=== PATIENT | female | born 1955 | race Caucasian/White ===

== ENCOUNTER → 2024-03-19 13:09 | Outpatient (REF) | payer MEDICARE, BC, SELFPAY ==
[2024-03-19 15:55] LABS: Urine Albumin Negative (Neg - Trace); Urine Bilirubin Negative (Negative); Urine Character Clear (Clear); Urine Color Yellow; Urine Glucose Negative (Negative); Urine Ketone Negative (Negative); Urine Leukocyte Trace (Negative); Urine Nitrite Negative (Negative); Urine Occult Blood Negative (Negative); Urine Urobilinogen Negative (Neg - 1+)
[2024-03-19 16:22] LABS: Urine Squamous Cell 0-2 /LPF (Few)
== END ==
LOC: HWLAB 13:09
PROVIDERS: ATTENDING PHYSICIAN Nurse Practitioner Adult Health
DX: R82.2 Biliuria (principal)
CPT/HCPCS: 81003; 81015

== ENCOUNTER → 2024-05-12 10:21 | Outpatient (REF) | payer MEDICARE, BC, SELFPAY ==
[2024-05-12 12:50] LABS: ALT (SGPT) 25 U/L (0-35); AST (SGOT) 30 U/L (14-36); Albumin 4.7 g/dl (3.5-5.0); Alkaline Phosphatase 66 U/L (38-126); Blood Urea Nitrogen 22 mg/dl (7-17); Calcium 10.3 mg/dl (8.4-10.2); Carbon Dioxide 26 mmol/L (22-30); Chloride 102 mmol/L (98-107); Creatine Phosphokinase 59 U/L (30-135); Glucose 107 mg/dl (70-99); Potassium 3.9 mmol/L (3.5-5.1); Sodium 141 mmol/L (135-145); Total Protein 7.7 g/dl (6.3-8.2); eGFR > 60.00
== END ==
LOC: HWLAB 10:21
PROVIDERS: ATTENDING PHYSICIAN Internal Medicine Cardiovascular Disease; FAMILY PHYSICIAN Nurse Practitioner Adult Health
DX: R00.1 Bradycardia, unspecified (principal); I25.10 Atherosclerotic heart disease of native coronary artery without angina pectoris; E78.5 Hyperlipidemia, unspecified; I10 Essential (primary) hypertension
CPT/HCPCS: 36415; 80053; 82550

== ENCOUNTER → 2024-05-27 08:11 | Outpatient (REF) | payer MEDICARE, BC, SELFPAY | LOC: HWRCS 08:11 | PROVIDERS: ATTENDING PHYSICIAN Internal Medicine Cardiovascular Disease; FAMILY PHYSICIAN Nurse Practitioner Adult Health | DX: R00.1 Bradycardia, unspecified (principal); I25.10 Atherosclerotic heart disease of native coronary artery without angina pectoris; E78.00 Pure hypercholesterolemia, unspecified; I10 Essential (primary) hypertension | CPT/HCPCS: 93306 ==

== ENCOUNTER → 2024-06-15 11:44 | Outpatient (REF) | payer MEDICARE, BC, SELFPAY | LOC: HWWDC 11:44 | PROVIDERS: ATTENDING PHYSICIAN Obstetrics & Gynecology; FAMILY PHYSICIAN Nurse Practitioner Adult Health | DX: Z12.31 Encounter for screening mammogram for malignant neoplasm of breast (principal) | CPT/HCPCS: 77063; 77067 ==

== ENCOUNTER → 2024-06-23 08:25 | Outpatient (REF) | payer MEDICARE, BC, SELFPAY | LOC: WDC 08:25 | PROVIDERS: ATTENDING PHYSICIAN Obstetrics & Gynecology; FAMILY PHYSICIAN Nurse Practitioner Adult Health | DX: R92.8 Other abnormal and inconclusive findings on diagnostic imaging of breast (principal) | CPT/HCPCS: 77065 ==

== ENCOUNTER → 2024-07-02 07:26 | Outpatient (REF) | payer MEDICARE, BC, SELFPAY | LOC: WDC 07:26 | PROVIDERS: ATTENDING PHYSICIAN Obstetrics & Gynecology; FAMILY PHYSICIAN Nurse Practitioner Adult Health | DX: R92.1 Mammographic calcification found on diagnostic imaging of breast (principal) | CPT/HCPCS: 88305; 19081; 76098; 88360; A4648 ==

== ENCOUNTER → 2024-07-02 08:59 | Outpatient (REF) | payer MEDICARE, BC, SELFPAY | LOC: RAD 08:59 | PROVIDERS: ATTENDING PHYSICIAN Internal Medicine Cardiovascular Disease; FAMILY PHYSICIAN Nurse Practitioner Adult Health | DX: Z95.1 Presence of aortocoronary bypass graft (principal); M79.604 Pain in right leg; M79.605 Pain in left leg | CPT/HCPCS: 93922; 93925 ==

== ENCOUNTER → 2024-07-20 09:31 | Outpatient (REF) | payer MEDICARE, BC, SELFPAY | LOC: WDC 09:31 | PROVIDERS: ATTENDING PHYSICIAN Surgery; FAMILY PHYSICIAN Nurse Practitioner Adult Health | DX: R92.1 Mammographic calcification found on diagnostic imaging of breast (principal) | CPT/HCPCS: 77065 ==

== ENCOUNTER → 2024-07-24 06:51 | Outpatient (REF) | payer MEDICARE, BC, SELFPAY | LOC: WDC 06:51 | PROVIDERS: ATTENDING PHYSICIAN Surgery | DX: R92.1 Mammographic calcification found on diagnostic imaging of breast (principal) | CPT/HCPCS: 88305; 19081; 76098; A4648 ==

== ENCOUNTER → 2024-08-03 11:26 | Outpatient (REF) | payer MEDICARE, BC, SELFPAY | LOC: WDC 11:26 | PROVIDERS: ATTENDING PHYSICIAN Surgery | DX: D05.11 Intraductal carcinoma in situ of right breast (principal) | CPT/HCPCS: 19281; A4648 ==

== ENCOUNTER 2024-08-04 06:20 | Day surgery (SDC) | payer MEDICARE, BC, SELFPAY ==
[2024-07-30 14:22] VITALS: BMI 26.5
[2024-08-04] VITALS (7 sets, daily range): BP systolic 94–154; BP diastolic 44–71; BMI 26.5
[2024-08-04] MEDS: LOVENOX 40 MG SC (08:30)
[2024-08-04] MEDS: NORMOSOL-R/PLASMALYTE-A 1000 IV (08:30)
[2024-08-04] MEDS: TYLENOL 1000 MG PO (08:31)
--- NOTE | 2024-08-04 10:32 | W.IMMPOSTOP ---
Surgical Immed Post Op Note
-
Primary Surgeon: Annabel
Assisting Surgeon: None
Pre-op Diagnosis: Right breast DCIS
Post-op Diagnosis: Same
Procedure Performed: Right localized lumpectomy and oncoplastic mastoplasty
Anesthesia Type: TIVA
Specimen / Cultures: Lumpectomy, margins
Estimated Blood Loss: 6cc
Complications: None
Operative Findings: Vianey reflectors dislodged
--- NOTE | 2024-08-04 10:33 | OR.RPT ---
Operative Report
Operative Report
Pre-op DX: Right breast DCIS
Post-op DX: Right breast DCIS
Procedure: Right localized lumpectomy, oncoplastic mastoplasty
The patient is a 68-year-old female with biopsy-proven ductal carcinoma in situ of the right breast. She presents for right localized lumpectomy and possible oncoplastic closure.
On the day prior to the procedure the patient presented to the breast center and 2 Vianey client consultant reflectors were placed. On the day of the procedure, she presented to the same-day surgical unit and was prepped. DVT and antibiotic prophylaxis were
provided and the patient was transferred to the operating room.
In the supine position intravenous sedation was delivered. The right breast was prepped and draped in the usual sterile fashion. An appropriate timeout was performed with all staff. Tissues were anesthetized with 1% lidocaine plain. The signal
of the 2 reflectors had been sounded out and a curvilinear incision was made equidistant between the highest signals. Skin flaps were elevated in the oncoplastic plane and a wide lumpectomy was performed using the cautery. 1 reflector was palpated
and dislodged and the second one was dislodged during the dissection and found on the drapes and sent under separate cover. Time out of body for the lumpectomy was noted and the specimen is oriented for the pathologist. Specimen radiography
confirmed the presence of all of the targeted calcifications within it. Additional margins were harvested for permanent analysis from the posterior, medial, superior, lateral, inferior, and anterior dimensions. These were oriented as well. This
left a resulting defect of 5 x 4 cm therefore in an oncoplastic fashion, separate tissue advancement flap was made using the cautery. Hemostasis was carefully maintained and Marcaine 0.5% plain was instilled into all tissues. A piece of Surgicel
was placed in the posterior dimension of the wound. Wound was closed using simple and erupted 3-0 plain on deep intermediate and subcutaneous tissue and skin was closed using simple interrupted 3-0 Vicryl on subcutaneous tissue and running
subcuticular 4 Monocryl with a few simple interrupted Monocryl's.
Surgical glue and sterile compressive dressings were applied. All sponge needle and instrument counts were correct the patient was transferred to the recovery recovery room in stable condition.
([id number])
== END 2024-08-04 11:35 | disposition home or self-care (01) ==
LOC: SDS 06:20
PROVIDERS: ATTENDING PHYSICIAN Surgery
DX: C50.911 Malignant neoplasm of unspecified site of right female breast (principal); Z17.0 Estrogen receptor positive status [ER+]
CPT/HCPCS: 19301; 88302; 88305; 88307; 76098; 88341; 88360

== ENCOUNTER 2024-09-14 09:35 | Day surgery (SDC) | payer MEDICARE, BC, SELFPAY ==
[2024-09-14] VITALS (15 sets, daily range): BP systolic 79–146; BP diastolic 43–94; BMI 27.3
[2024-09-14 10:15] LABS: Hematocrit 38.5 % (37.0-47.0); Hemoglobin 13.5 g/dL (12.0-16.0); Mean Corp Hgb Conc. 35.1 g/dL (33.0-37.0); Mean Corpuscular Volume 88.5 fL (81.0-99.0); Mean Platelet Volume 10.2 fL (7.4-10.4); Platelet Count 210 10^3/uL (130-400); Red Blood Cell Count 4.35 10^6/uL (4.20-5.40)
[2024-09-14 10:29] LABS: Blood Urea Nitrogen 17 mg/dl (7-17); Calcium 9.9 mg/dl (8.4-10.2); Carbon Dioxide 27 mmol/L (22-30); Chloride 104 mmol/L (98-107); Estimated Creatinine Clearance 63 ml/min; Glucose 115 mg/dl (70-99); Potassium 3.7 mmol/L (3.5-5.1); Sodium 139 mmol/L (135-145); eGFR > 60.00
[2024-09-14 10:31] LABS: APTT 27.4 Sec (23.4-35.0); INR 0.96; PT 13.1 Sec (11.4-14.6)
--- NOTE | 2024-09-14 11:09 | W.SUR.PREOP ---
Pre-Operative Surgical Note
-
I have examined this patient prior to the performance of the scheduled procedure.
The patient's condition is unchanged from the time of the current History and
Physical and the patient is able to undergo the scheduled procedure.
[2024-09-14] MEDS: NSS 248 ML IV (12:03)
--- NOTE | 2024-09-14 13:47 | W.SUR.POST ---
Surgical Immediate Post Op
Note
Pre Op Diagnosis: PAD
Post Op Diagnosis: R popliteal stenosis. L popliteal stenosis.
Procedure Performed: Aortogram + bilateral lower extremity angiogram. IVUS of RLE. Shockwave R popliteal calified lesion. R popliteal stent and MACHINE HEEL SEAT FITTER. Proglide L groin.
Primary Surgeon: Tab Olsen
Secondary Surgeons: Julio C Nugent
Anesthesia: see anesthesia flowsheet
Estimated Blood Loss: 2cc
Fluids: see anesthesia flowsheet
Drains/Shunts: none
Specimens/Cultures: none
Doppler/Duplex/Angio (Y/N): Y
Complications: none
Operative Findings: L groin access. Aortogram without significant inflow disease. Crossed to R and performed RLE angiogram which was notable for popliteal stenosis with three vessel runoff. IVUS of RLE. Shockwave to calcified R popliteal stenosis
with good effect. Placement of R popliteal stent followed by MACHINE HEEL SEAT FITTER. Completion angio with good result. Then perfomed LLE angio which was notable for L popliteal occlusive lesion with large collateral but no other major obvious disease. Proglidge L
groin for closure. Patient to remain flat x 1 hour, then 30 degrees x 3 additional hours.
[2024-09-14] MEDS: PLAVIX 300 MG PO (14:19)
--- NOTE | 2024-09-14 14:21 | OR.RPT ---
Operative Report
Operative Report
Date of Operation: 09/14/2024
Pre Op Diagnosis: Debilitating bilateral lower extremity claudication
Post Op Diagnosis: Debilitating bilateral lower extremity claudication
Procedure:
1.) Intravascular ultrasound to right popliteal artery calcified stenosis (6 mm x 80 mm E8 shockwave balloon)
2.) Balloon angioplasty and stenting of right popliteal artery stenosis (6 mm x 40 mm Zilver PTX)
3.) Intravascular ultrasound of external iliac artery, common femoral artery, superficial femoral artery, popliteal artery, tibioperoneal trunk and proximal peroneal artery
4.) Diagnostic aortobiiliac arteriogram
5.) Diagnostic BILATERAL lower extremity arteriogram
6.) Ultrasound-guided percutaneous access to the left common femoral artery
7.) Pro-glide closure to left common femoral artery access
Surgeon: Tab Olsen III, MD
Complaint Evaluation Supervisor: Julio C Nugent MD, PGY4
Anesthesia: Sedation with local
Fluoroscopy:
23 min
128 mGy
42.77 Gy.cm2
Complications: None
Estimated Blood Loss: 20 cc
History and Indications for Procedure: 68-year-old female with debilitating bilateral lower extremity claudication. Abnormal preoperative noninvasive lower extremity arterial studies
Procedure in Detail: Renee Mcgee was correctly identified and placed supine on the operating table. After adequate induction of anesthesia the bilateral groins were prepped and draped in the usual sterile fashion. A timeout was performed with the
nursing and anesthesia staff confirming the patient's identity as well as the nature and laterality of the procedure.
The left common femoral artery was identified under ultrasound guidance. The artery was patent. The superior and inferior aspects of the femoral head were identified with radiographic guidance and marked at the skin level. The proposed puncture site
was infiltrated with local anesthesia. Under ultrasound guidance we accessed the left common femoral artery with a micropuncture needle and upsized to a 5 Fr sheath over a #waywireson wire. The wire and a NaturalPath MediapherMathZee hook flush catheter were advanced into
the distal abdominal aorta and a diagnostic aorto-biiliac arteriogram was performed:
AORTO-ILIAC ARTERIOGRAM:
Aorta: Patent with no significant stenosis identified
Right common iliac artery: Patent with no significant stenosis identified
Right external iliac artery: Patent with no significant stenosis identified
Left common iliac artery: Patent with no significant stenosis identified
Left external iliac artery: Patent with no significant stenosis identified
Under roadmap guidance using a Glidewire and the SheMediaScrapeerMathZee hook catheter we selected the right common iliac artery and then the external iliac artery. A catheter was tracked up and over the aortic bifurcation and placed in the distal external iliac
artery. A diagnostic right lower extremity arteriogram was then performed which demonstrated the following:
RIGHT LOWER EXTREMITY:
Common femoral artery: Patent with no significant stenosis identified
Profunda femoral artery: Patent with no significant stenosis identified
Superficial femoral artery: Patent with no significant stenosis identified
Popliteal artery: Patent. Focal bulky calcified stenosis behind the knee leading to a high-grade stenosis
Anterior tibial artery: Patent
Tibioperoneal trunk: Patent
Peroneal artery: Patent
Posterior tibial artery: Patent
ENDOVASCULAR INTERVENTION: Systemic heparin was administered. Exchanged out for a 6 Fr 45 cm sheath over a Storq wire. Selected the superficial femoral artery followed by the popliteal artery under roadmap guidance with Quickcross catheter and
glidewire. The popliteal artery stenosis was crossed with a Quickcross and Glidewire. The wire and catheter were advanced into the TP trunk/peroneal artery and subtraction angio confirmed proper position in the true lumen. Exchanged out for a 0.014
wire.
A 0.014 IVUS catheter was then used for diagnostic imaging and demonstrated the following:
Right distal external iliac artery-7 mm x 7.5 mm
Right common femoral artery-7.2 mm x 7.7 mm
Right proximal SFA-5 mm x 6 mm
Right mid SFA-5.4 mm x 5.8 mm
Right distal SFA-4.6 mm x 5.2 mm
Right above-knee popliteal artery-5.2 mm x 6.2 mm
Popliteal artery behind the knee demonstrated a calcified plaque contributing to a significant stenosis correlating to the arteriogram and preoperative duplex findings
Right below the knee popliteal artery 4.4 mm x 4.8 mm
TP trunk/proximal peroneal artery 3.4 mm x 4 mm
Due to the heavily calcified nature of the popliteal artery disease and in an effort to modify the calcium to achieve maximum luminal gain with endovascular intervention I elected to proceed with intravascular lithotripsy. A 6 mm x 80 mm Shockwave
balloon was placed across the stenosis under roadmap guidance. Alternating rounds of lithotripsy pulse delivery at sub-nominal pressure and angioplasty at nominal pressure was performed across the stenosis. In between rounds of pulse delivery and
angioplasty the balloon was deflated and repositioned under roadmap guidance. All 400 pulses were delivered. Subsequent arteriogram demonstrated significant improvement in luminal gain but eccentric plaque remained contributing to a stenosis. I
then brought into position a 6 mm x 40 mm Zilver PTX stent and positioned this across the residual popliteal artery stenosis under roadmap guidance. The stent was deployed and the delivery system removed over the wire. A 5 mm angioplasty balloon was
used to profile the entire length of the stent.
COMPLETION ARTERIOGRAM: Excellent technical result. Brisk flow through a widely patent popliteal artery. Only minimal residual stenosis remained. Brisk three-vessel tibial artery runoff identified.
The sheath tip was pulled back into the left external iliac artery.
A runoff arteriogram of the left lower extremity was performed which demonstrated the following:
LEFT LOWER EXTREMITY:
Common femoral artery: Patent with no significant stenosis identified
Profunda femoral artery: Patent with no significant stenosis identified
Superficial femoral artery: Patent with no significant stenosis identified
Popliteal artery: Patent. Focal bulky calcified stenosis behind the knee leading to a focal occlusion. Distal reconstitution of the below the knee popliteal artery identified
Anterior tibial artery: Patent
Tibioperoneal trunk: Patent
Peroneal artery: Patent
Posterior tibial artery: Patent
Satisfied with this result we concluded the procedure. Protamine was administered. The left common femoral artery access was closed successfully with a single Pro-glide closure device. Sterile dressing was applied.
The patient tolerated the procedure well and was taken to the recovery area in stable condition.
Attestation: I was present and responsible for the entire procedure.
Signed:
Tab Olsen III, MD
[facility]
[phone] (cell)
[2024-09-14] MEDS: NSS 1000 IV (16:21)
== END 2024-09-14 17:33 | disposition home or self-care (01) ==
LOC: CATH 09:35
PROVIDERS: ATTENDING PHYSICIAN Surgery Vascular Surgery; OTHER PHYSICIAN Internal Medicine Cardiovascular Disease; PRIMARYCARE PHYSICIAN Nurse Practitioner Adult Health
DX: I70.213 Atherosclerosis of native arteries of extremities with intermittent claudication, bilateral legs (principal); I10 Essential (primary) hypertension; E78.00 Pure hypercholesterolemia, unspecified; I25.10 Atherosclerotic heart disease of native coronary artery without angina pectoris; Z95.1 Presence of aortocoronary bypass graft; Z79.82 Long term (current) use of aspirin; Z79.02 Long term (current) use of antithrombotics/antiplatelets
CPT/HCPCS: 37226; 37252; 37253; 75625; 75716; 80048; 85027; 85610; 85730; C1725; C1760; C1769; C1874; C1894; Q9967

== ENCOUNTER 2024-09-28 06:48 | Day surgery (SDC) | payer MEDICARE, BC, SELFPAY ==
[2024-09-28] VITALS (13 sets, daily range): BP systolic 100–145; BP diastolic 44–71
[2024-09-28 07:27] LABS: Hematocrit 35.6 % (37.0-47.0); Hemoglobin 12.9 g/dL (12.0-16.0); Mean Corp Hgb Conc. 36.2 g/dL (33.0-37.0); Mean Corpuscular Hgb 31.5 pg (27.0-31.0); Mean Corpuscular Volume 86.8 fL (81.0-99.0); Mean Platelet Volume 10.5 fL (7.4-10.4); Platelet Count 187 10^3/uL (130-400); Red Cell Dist. Width 12.5 % (11.5-14.5); White Blood Cell Count 7.2 10^3/uL (4.8-10.8)
--- NOTE | 2024-09-28 07:28 | HP.FOC2 ---
Focused History & Physical
Chief Complaint
HPI:
Chief Complaint: Left lower extremity claudication that is lifestyle limiting.
HPI / Indication for Planned Procedure:
This is a 68 year old female with significant past medical history for hypertension, CAD, BL carotid stenosis, and right breast DCI who presented to [facility] on 09/28/2024 for scheduled procedure of left lower extremity angiogram with
possible endovascular intervention with Dr. Tab Olsen III. Patient denies recent illness, trauma, or hospitalization. Denies fever, chills, nausea, vomiting, ABD pain, loose stools, and cough. She endorsees she is at baseline health. She recently
underwent intravascular ultrasound to right popliteal artery calcified stenosis (6 mm x 80 mm E8 shockwave balloon), balloon angioplasty and stenting of right popliteal artery stenosis (6 mm x 40 mm Zilver PTX), Intravascular ultrasound of external
iliac artery, common femoral artery, superficial femoral artery, popliteal artery, tibioperoneal trunk and proximal peroneal artery, diagnostic aortobiiliac arteriogram, and diagnostic BILATERAL lower extremity arteriogram with Dr. Tab Olsen III
on 09/14/2024. She reports resolution to her right lower extremity rest pain since surgery.
Relevant Past Medical History: Coronary Artery Disease, Hypertension and Other (BL carotid stenosis, right breast DCIS)
Relevant Family History: Positive for (colon cancer, sarcoma, CAD)
Relevant Past Surgical History: Positive for (CABG x4, right breast biopsy, right lumpectomy )
Review of Systems
Review of Pertinent Systems: All Systems Negative
Medication
See Medication form for detailed medications: Yes
Medication List (including Herbals & OTC):
acetaminophen 500 mg capsule 500 mg PO Q6H PRN left leg pain, ankle pain 07/31/24
aspirin 81 mg tablet,delayed release 81 mg PO DAILY 07/31/24
atorvastatin 80 mg tablet 80 mg PO DAILY 07/31/24
ezetimibe 10 mg tablet 10 mg PO DAILY 07/31/24
hydrochlorothiazide 12.5 mg tablet 12.5 mg PO DAILY 07/31/24
losartan 100 mg tablet 100 mg PO DAILY 07/31/24
multivitamin 1 tab PO DAILY 09/07/24
clopidogrel 75 mg tablet 75 mg PO DAILY #90 tabs 09/14/24
omega 2-qev-qbg-fish oil 1,000 mg (120 mg-180 mg) capsule (Fish Oil) 1 cap PO DAILY 09/23/24
Medications Reviewed: Yes
Allergies and Reactions
Patient has Allergies: No
Noted Allergies and Reactions:
Allergy/AdvReac Type Severity Reaction Status Date / Time
No Known Allergies Allergy Verified 09/28/24 07:26
Pertinent Physical Exam
All Other Systems: Negative
Head/Neck: Normal
Lungs: Normal (BL lungs CTA )
Heart: Normal (RRR, S1S2)
Abdomen: Normal (NTND)
Extremities: Other (BL radial pulse +2, RLE DP+1, LLE DP non-palpable)
Neurological: Normal
Diagnosis / Assessment
Diagnosis: 68 year old female with left lower extremity claudication lifestyle limiting
Plan / Procedure
Plan: Will proceed with as scheduled left lower extremity angiogram with possible endovascular intervention.
Anesthesia/Sedation to be done by Anesthesia Provider: Yes
[2024-09-28 07:38] LABS: Blood Urea Nitrogen 12 mg/dl (7-17); Calcium 9.4 mg/dl (8.4-10.2); Carbon Dioxide 25 mmol/L (22-30); Chloride 103 mmol/L (98-107); Estimated Creatinine Clearance 80 ml/min; Glucose 107 mg/dl (70-99); Potassium 3.3 mmol/L (3.5-5.1); Sodium 137 mmol/L (135-145); eGFR > 60.00
[2024-09-28] MEDS: NSS 252 IV (07:40)
[2024-09-28 07:45] LABS: INR 0.88; PT 12.2 Sec (11.4-14.6)
[2024-09-28 07:47] LABS: APTT 28.5 Sec (23.4-35.0)
--- NOTE | 2024-09-28 09:38 | W.SUR.POST ---
Surgical Immediate Post Op
Note
Pre Op Diagnosis: PAOD
Post Op Diagnosis: PAOD
Procedure Performed: LLE angio, lithotripsy, stent via R femoral access
Primary Surgeon: Tab Olsen
Secondary Surgeons: Julio C Nugent
Anesthesia: see anesthesia flowsheet
Estimated Blood Loss: 2cc
Fluids: see anesthesia flowsheet
Drains/Shunts: none
Specimens/Cultures: none
Doppler/Duplex/Angio (Y/N): y
Complications: none
Operative Findings: R groin access. Diagnostic aortbi-iliogram and LLE angiogram. Near-occlusive L popliteal lesion with prominent collateral. Lithotripsy with shockwave catheter of popliteal lesion with good effect but residual stenosis. Vega
stent of L pop. Three vessel runoff on completion, palpable DP.
--- NOTE | 2024-09-28 12:11 | OR.RPT ---
Operative Report
Operative Report
Date of Operation: 09/28/2024
Pre Op Diagnosis: Debilitating bilateral lower extremity claudication
Post Op Diagnosis: Debilitating bilateral lower extremity claudication
Procedure:
1.) Intravascular lithotripsy to left popliteal artery behind the knee (6 mm x 80 mm E8 shockwave balloon)
2.) Balloon angioplasty and drug-eluting stent placement to left popliteal artery behind the knee (6 mm x 40 mm Zilver PTX)
3.) Diagnostic left lower extremity arteriogram
4.) Diagnostic aortobiiliac arteriogram
5.) Ultrasound-guided percutaneous access to the right common femoral artery
Surgeon: Tab Olsen III, MD
Painting And Coating Worker: Julio C Nugent MD, PGY4
Anesthesia: Sedation with local
Fluoroscopy:
20.7 min
101 mGy
24.07 Gy.cm2
Complications: None
Estimated Blood Loss: Less than 20 cc
History and Indications for Procedure: 68-year-old female with peripheral arterial occlusive disease and disabling lower extremity claudication.
Procedure in Detail: Renee Mcgee was correctly identified and placed supine on the operating table. After adequate induction of anesthesia the bilateral groins were prepped and draped in the usual sterile fashion. A timeout was performed with the
nursing and anesthesia staff confirming the patient's identity as well as the nature and laterality of the procedure.
The right common femoral artery was identified under ultrasound guidance. The artery was patent. The superior and inferior aspects of the femoral head were identified with radiographic guidance and marked at the skin level. The proposed puncture
site was infiltrated with local anesthesia. Under ultrasound guidance we accessed the right common femoral artery with a micropuncture needle and upsized to a 5 Fr sheath over a Bentson wire. The wire and a ShepherNaphCare hook flush catheter were
advanced into the distal abdominal aorta and a diagnostic aorto-biiliac arteriogram was performed:
AORTO-ILIAC ARTERIOGRAM:
Aorta: Patent with no significant stenosis identified
Right common iliac artery: Patent with no significant stenosis identified
Right external iliac artery: Patent with no significant stenosis identified
Left common iliac artery: Patent with no significant stenosis identified
Left external iliac artery: Patent with no significant stenosis identified
Under roadmap guidance using a Glidewire and the ShepherNaphCare hook catheter we selected the left common iliac artery and then the external iliac artery. A catheter was tracked up and over the aortic bifurcation and placed in the distal external iliac
artery. A diagnostic left lower extremity arteriogram was then performed which demonstrated the following:
LEFT LOWER EXTREMITY:
Common femoral artery: Patent with no significant stenosis identified
Profunda femoral artery: Patent with no significant stenosis identified
Superficial femoral artery: Patent with no significant stenosis identified
Popliteal artery: Patent above the knee. Focal calcified high-grade stenosis versus focal occlusion behind the knee. Below the knee segment patent with no stenosis
Anterior tibial artery: Patent
Tibioperoneal trunk: Patent
Peroneal artery: Patent
Posterior tibial artery: Patent
ENDOVASCULAR INTERVENTION: Systemic heparin was administered. Exchanged out for a 6 Fr 45 cm sheath over a Storq wire. Selected the superficial femoral artery under roadmap guidance with Quickcross catheter and glidewire. The popliteal disease was
crossed with a Quickcross and Glidewire. The wire and catheter were advanced into the below the knee popliteal artery and subtraction angio confirmed proper position in the true lumen. Exchanged out for a Muir ST 0.014 wire. Due to the heavily
calcified nature of the popliteal artery disease and in an effort to modify the calcium to achieve maximum luminal gain with endovascular intervention I elected to proceed with intravascular lithotripsy. A 6 mm x 80 mm Shockwave balloon was placed
across the stenosis under roadmap guidance. Alternating rounds of lithotripsy pulse delivery at sub-nominal pressure and angioplasty at nominal pressure was performed across the stenosis. In between rounds of pulse delivery and angioplasty the
balloon was deflated and repositioned under roadmap guidance. All 400 pulses were delivered. Subsequent arteriogram demonstrated a significantly improved result with a patent popliteal artery but residual stenosis behind the knee was identified. I
treated this area with a 6 mm x 40 mm Zilver PTX stent. This was positioned in the desired location under roadmap guidance and deployed. The stent was postdilated with a 6 mm balloon.
COMPLETION ARTERIOGRAM: Excellent technical result. Brisk flow through the popliteal artery with minimal residual stenosis identified. Widely patent stent. Intact brisk three-vessel tibial runoff.
Satisfied with this result we concluded the procedure. The sheath tip was pulled back into the right external iliac artery. Protamine was administered. The sheath was secured with the plan to pull it in the recovery area.
The patient tolerated the procedure well and was taken to the recovery area in stable condition.
Attestation: I was present and responsible for the entire procedure.
Signed:
Tab Olsen III, MD
[facility]
[phone] (tuiv)
[2024-09-28] MEDS: NSS 1000 IV (14:41)
== END 2024-09-28 15:20 | disposition home or self-care (01) ==
LOC: CATH 06:48
PROVIDERS: ATTENDING PHYSICIAN Surgery Vascular Surgery; OTHER PHYSICIAN Internal Medicine Cardiovascular Disease; PRIMARYCARE PHYSICIAN Nurse Practitioner Adult Health
DX: I70.212 Atherosclerosis of native arteries of extremities with intermittent claudication, left leg (principal); I10 Essential (primary) hypertension; I25.10 Atherosclerotic heart disease of native coronary artery without angina pectoris; Z85.72 Personal history of non-Hodgkin lymphomas; Z79.02 Long term (current) use of antithrombotics/antiplatelets; Z79.899 Other long term (current) drug therapy; Z79.82 Long term (current) use of aspirin
CPT/HCPCS: C9765; 75625; 75716; 80048; 85027; 85610; 85730; C1725; C1769; C1874; C1894; Q9967

== ENCOUNTER → 2024-09-30 09:02 | Outpatient (REF) | payer MEDICARE, BC, SELFPAY | LOC: RCS 09:02 | PROVIDERS: ATTENDING PHYSICIAN Internal Medicine Cardiovascular Disease; FAMILY PHYSICIAN Nurse Practitioner Adult Health | DX: R00.1 Bradycardia, unspecified (principal); R42 Dizziness and giddiness; I10 Essential (primary) hypertension; I25.10 Atherosclerotic heart disease of native coronary artery without angina pectoris | CPT/HCPCS: 93225; 93226 ==

== ENCOUNTER → 2024-10-21 08:22 | Outpatient (REF) | payer MEDICARE, BC, SELFPAY | LOC: RAD 08:22 | PROVIDERS: ATTENDING PHYSICIAN Surgery Vascular Surgery; FAMILY PHYSICIAN Nurse Practitioner Adult Health | DX: I73.9 Peripheral vascular disease, unspecified (principal) | CPT/HCPCS: 93922; 93925 ==

== ENCOUNTER → 2024-11-10 12:24 | Outpatient (REF) | payer MEDICARE, BC, SELFPAY | LOC: RAD 12:24 | PROVIDERS: ATTENDING PHYSICIAN Physician Assistant; FAMILY PHYSICIAN Nurse Practitioner Adult Health | DX: I65.23 Occlusion and stenosis of bilateral carotid arteries (principal) | CPT/HCPCS: 70496; 70498; 93880; Q9967 ==

== ENCOUNTER → 2024-11-26 12:55 | Outpatient (REF) | payer MEDICARE, BC, SELFPAY | LOC: HWRAD 12:55 | PROVIDERS: ATTENDING PHYSICIAN Surgery Vascular Surgery; FAMILY PHYSICIAN Internal Medicine | DX: R91.1 Solitary pulmonary nodule (principal) | CPT/HCPCS: 71250 ==

== ENCOUNTER → 2025-02-25 10:03 | Outpatient (REF) | payer MEDICARE, BC, SELFPAY | LOC: HWRAD 10:03 | PROVIDERS: ATTENDING PHYSICIAN Nurse Practitioner Adult Health; FAMILY PHYSICIAN Nurse Practitioner Adult Health | DX: R91.1 Solitary pulmonary nodule (principal); Z98.890 Other specified postprocedural states | CPT/HCPCS: 71046 ==

== ENCOUNTER → 2025-03-15 10:13 | Outpatient (REF) | payer MEDICARE, BC, SELFPAY ==
[2025-03-15 12:17] LABS: Hematocrit 36.0 % (37.0-47.0); Hemoglobin 12.4 g/dL (12.0-16.0); Mean Corp Hgb Conc. 34.4 g/dL (33.0-37.0); Mean Corpuscular Volume 86.7 fL (81.0-99.0); Nucleated Red Blood Cells % 0 %; Platelet Count 196 10^3/uL (130-400); Red Cell Dist. Width 12.8 % (11.5-14.5)
[2025-03-15 12:43] LABS: ALT (SGPT) 19 U/L (0-35); AST (SGOT) 25 U/L (14-36); Albumin 4.6 g/dl (3.5-5.0); Alkaline Phosphatase 72 U/L (38-126); Calcium 10.3 mg/dl (8.4-10.2); HDL Cholesterol 50 mg/dl; LDL Cholesterol, Calculated 60 mg/dl; Total Protein 7.4 g/dl (6.3-8.2); Very Low Density Lipoprotein 25 mg/dl (0-30)
== END ==
LOC: HWLAB 10:13
PROVIDERS: ATTENDING PHYSICIAN Internal Medicine Cardiovascular Disease; FAMILY PHYSICIAN Nurse Practitioner Adult Health
DX: E83.52 Hypercalcemia (principal); E78.00 Pure hypercholesterolemia, unspecified; D05.11 Intraductal carcinoma in situ of right breast; I10 Essential (primary) hypertension; E78.5 Hyperlipidemia, unspecified; I25.10 Atherosclerotic heart disease of native coronary artery without angina pectoris
CPT/HCPCS: 36415; 80061; 80076; 83970; 85025

== ENCOUNTER 2025-04-20 06:26 | Day surgery (SDC) | payer MEDICARE, BC, SELFPAY | END 2025-04-20 14:35 | disposition home or self-care (01) | LOC: GI 06:26 | PROVIDERS: ATTENDING PHYSICIAN Student in an Organized Health Care Education/Training Program | DX: Z12.11 Encounter for screening for malignant neoplasm of colon (principal); D12.3 Benign neoplasm of transverse colon; K57.30 Diverticulosis of large intestine without perforation or abscess without bleeding; K62.1 Rectal polyp; Z86.0101 Personal history of adenomatous and serrated colon polyps; Z80.0 Family history of malignant neoplasm of digestive organs; Z79.02 Long term (current) use of antithrombotics/antiplatelets | CPT/HCPCS: 45385; 45380; 88305 ==

== ENCOUNTER → 2025-05-12 07:35 | Outpatient (REF) | payer MEDICARE, BC, SELFPAY | LOC: WDC 07:35 | PROVIDERS: ATTENDING PHYSICIAN Family Medicine Geriatric Medicine; FAMILY PHYSICIAN Nurse Practitioner Adult Health | DX: R92.333 Mammographic heterogeneous density, bilateral breasts (principal); Z85.3 Personal history of malignant neoplasm of breast; Z12.39 Encounter for other screening for malignant neoplasm of breast | CPT/HCPCS: 76641 ==

== ENCOUNTER → 2025-06-16 09:28 | Outpatient (REF) | payer MEDICARE, BC, SELFPAY | LOC: HWWDC 09:28 | PROVIDERS: ATTENDING PHYSICIAN Surgery; FAMILY PHYSICIAN Nurse Practitioner Adult Health; REFERRING PHYSICIAN Family Medicine Geriatric Medicine | DX: Z12.31 Encounter for screening mammogram for malignant neoplasm of breast (principal) | CPT/HCPCS: 77063; 77067 ==